=== PATIENT | male | born 1935 | race Caucasian/White ===

== ENCOUNTER 2018-05-21 13:07 | Inpatient (IN) | payer OTHER, MEDICAID ==
[~2018-05-21] VITALS: Ht 173 cm; Wt 113.9 kg
[~2018-05-21 13:07] MED LIST: ALBU18HF2 IH; DIGO250T4 PO; FLUT1DIS3 IH; FOLI-43 PO; LEVO125T8 PO; METF-414 PO; OMEP20CA10 PO; WARF1TAB85 PO
[2018-05-21] MEDS ORDERED: IPRATROPIUM BROMIDE (0.02%) 0.5MG/2.5ML NEB HHN STA (13:59)
[2018-05-21] MEDS ORDERED: METHYLPREDNISOLONE SOD SUCC 125 MG/2 ML VIAL IV STA (13:59)
[2018-05-21] MEDS ORDERED: ALBUTEROL (0.083%) 2.5MG/3ML NEB HHN STA (13:59)
[2018-05-21 14:26] LABS: BASOPHILS % 0.6 % (0.0-2.0); HEMATOCRIT. 42.9 % (42.0-52.0); HEMOGLOBIN. 14.1 g/dL (14.0-18.0); LYMPHOCYTES % 19.1 % (20.0-50.0); MEAN CORPUSCULAR HEMOGLOBIN 28.5 pg (28.0-32.0); MEAN CORPUSCULAR VOLUME 87.1 fL (80.0-94.0); MEAN PLATELET VOLUME 7.3 fl (7.4-10.4); NEUTROPHILS % 67.3 % (40.0-76.0); PLATELET 200 x1000/uL (130-400); RED BLOOD CELL COUNT 4.93 mill/uL (4.7-6.1); RED CELL DISTRIBUTION WIDTH 15.3 % (11.6-14.6)
[2018-05-21 14:34] LABS: CHLORIDE 91 mEq/L (98-107)
[2018-05-21 14:41] LABS: INR 1.1; PARTIAL THROMBOPLASTIN TIME 31.7 sec (23.4-31.0); PROTHROMBIN TIME 11.5 sec (9.1-11.1)
[2018-05-21 14:58] LABS: DIGOXIN 0.5 ng/mL (0.9-2.0)
[2018-05-21] MEDS ORDERED: CLOPIDOGREL 75MG TABLET PO ONE (17:30)
[2018-05-21] MEDS ORDERED: ENOXAPARIN 150MG/ML SYR SUBCUT ONE (17:30)
[2018-05-21 20:12] LABS: T4 FREE 1.25 ng/dL (0.76-1.46)
[2018-05-21] MEDS ORDERED: IOHEXOL-350 100 ML BOTTLE ONE (22:12)
[2018-05-22] VITALS (7 sets, daily range): BP systolic 101–124; BP diastolic 62–78
[2018-05-22] MEDS ORDERED: GUAIFENESIN 200MG/10ML SUGAR FREE UDC PO PRN (00:45)
[2018-05-22] MEDS ORDERED: IPRATROPIUM/ALBUTEROL 0.5-3(2.5)MG/3ML NEB INH PRN (00:45)
[2018-05-22] MEDS ORDERED: DIPHENHYDRAMINE 50MG/ML VIAL IV PRN (00:45)
[2018-05-22] MEDS ORDERED: CLONIDINE 0.1MG TABLET PO PRN (00:45)
[2018-05-22] MEDS ORDERED: ONDANSETRON HCL 4MG/2ML INJ IV PRN (00:45)
[2018-05-22] MEDS ORDERED: ACETAMINOPHEN 325MG TABLET PO PRN (00:45)
[2018-05-22] MEDS ORDERED: DEXTROSE 50% WATER 50ML SYRINGE IV PRN (00:45)
[2018-05-22] MEDS ORDERED: MAGNESIUM/ALUMINUM HYDROXIDE/SIMETHICONE 30ML UDC PO PRN (00:45)
[2018-05-22] MEDS: METHYLPREDNISOLONE SOD SUCC 40 MG/ML VIAL IV SCH ×3 (05:53→21:00)
[2018-05-22] MEDS: BLOOD SUGAR DIAGNOSTIC STRIP TEST SCH ×4 (05:54→20:34)
[2018-05-22] MEDS: SODIUM CHLORIDE 0.9% INJ 3ML FLUSH IVF SCH ×3 (05:54→21:07)
[2018-05-22] MEDS: ENOXAPARIN 150MG/ML SYR SUBCUT SCH ×2 (05:54→17:55)
[2018-05-22] MEDS: OMEPRAZOLE 20MG CAPSULE EXTENDED RELEASE PO SCH ×2 (05:57→21:00)
[2018-05-22] MEDS: INSULIN LISPRO 100 UNITS/ML SUBCUT SCH ×4 (07:50→21:01)
[2018-05-22] MEDS: INSULIN GLARGINE UD 100 UNITS/ML SYR SUBCUT SCH (09:06)
[2018-05-22] MEDS: IPRATROPIUM/ALBUTEROL 0.5-3(2.5)MG/3ML NEB HHN SCH ×4 (09:50→21:40)
[2018-05-22] MEDS ORDERED: INSULIN GLARGINE UD 100 UNITS/ML SYR SUBCUT SCH (10:00)
[2018-05-22 13:36] LABS: BG BASE EXCESS 7.9 mmol/L (-2.0-2.0); BG CARBOXYHEMOGLOBIN 0.9 % (0.5-1.5); BG FRACTION INSPIRED OXYGEN 30; BG HCO3 ACT 34.6 mmol/L (22.0-26.0); BG METHEMOGLOBIN 0.2 % (0.0-1.5); BG OXYHEMOGLOBIN 95.9 % (94.0-97.0); BG PCO2 56.6 mmHg (35.0-45.0); BG PH 7.404 (7.350-7.450); BG PO2 92.3 mmHg (75.0-100.0); BG SAMPLE SITE RIGHT RADIAL; BG TOTAL HEMOGLOBIN 14.3 g/dL (12.0-18.0); BG VENT MODE NASAL CANNULA
[2018-05-22 15:33] LABS: INR 1.2; PROTHROMBIN TIME 11.6 sec (9.1-11.1)
[2018-05-22 15:37] LABS: CHLORIDE 92 mEq/L (98-107)
[2018-05-22 15:45] LABS: LDL CHOLESTEROL 94 mg/dL (5-100)
[2018-05-22 15:46] LABS: HDL CHOLESTEROL 28 mg/dL (40-59)
[2018-05-22] MEDS: DIGOXIN 250MCG TABLET PO SCH (17:55)
[2018-05-22] MEDS: BUDESONIDE 0.5MG/2ML NEB HHN SCH (21:40)
[2018-05-23 00:35] VITALS: BP 121/68
[2018-05-23] MEDS: IPRATROPIUM/ALBUTEROL 0.5-3(2.5)MG/3ML NEB HHN SCH ×6 (00:53→19:47)
[2018-05-23 04:00] VITALS: BP 123/69
[2018-05-23] MEDS: METHYLPREDNISOLONE SOD SUCC 40 MG/ML VIAL IV SCH ×3 (06:31→21:27)
[2018-05-23] MEDS: SODIUM CHLORIDE 0.9% INJ 3ML FLUSH IVF SCH ×3 (06:31→21:27)
[2018-05-23] MEDS: OMEPRAZOLE 20MG CAPSULE EXTENDED RELEASE PO SCH ×2 (06:31→21:27)
[2018-05-23] MEDS: BLOOD SUGAR DIAGNOSTIC STRIP TEST SCH ×4 (06:31→21:27)
[2018-05-23] MEDS: ENOXAPARIN 150MG/ML SYR SUBCUT SCH ×2 (06:31→18:13)
[2018-05-23] MEDS: INSULIN LISPRO 100 UNITS/ML SUBCUT SCH ×4 (07:50→21:28)
[2018-05-23 08:00] VITALS: BP 110/50
[2018-05-23] MEDS: BUDESONIDE 0.5MG/2ML NEB HHN SCH ×2 (08:17→19:47)
[2018-05-23 08:53] LABS: HEMATOCRIT 40.4 % (42.0-52.0); HEMOGLOBIN 13.2 g/dL (14.0-18.0); MEAN CORPUSCULAR HEMOGLOBIN 28.1 pg (28.0-32.0); MEAN CORPUSCULAR VOLUME 86.3 fL (80.0-94.0); PLATELET 213 x1000/uL (130-400); RED BLOOD CELL COUNT 4.68 mill/uL (4.7-6.1); RED CELL DISTRIBUTION WIDTH 15.4 % (11.6-14.6)
[2018-05-23] MEDS: INSULIN GLARGINE UD 100 UNITS/ML SYR SUBCUT SCH (09:29)
[2018-05-23 12:00] VITALS: BP 110/66
[2018-05-23 16:00] VITALS: BP 109/69
[2018-05-23] MEDS: DIGOXIN 250MCG TABLET PO SCH (18:14)
[2018-05-23 20:42] VITALS: BP 110/58
[2018-05-24] VITALS: BP 114/60
[2018-05-24] MEDS: IPRATROPIUM/ALBUTEROL 0.5-3(2.5)MG/3ML NEB HHN SCH ×6 (01:32→22:18)
[2018-05-24 04:00] VITALS: BP 136/77
[2018-05-24] MEDS: OMEPRAZOLE 20MG CAPSULE EXTENDED RELEASE PO SCH ×2 (06:35→22:08)
[2018-05-24] MEDS: METHYLPREDNISOLONE SOD SUCC 40 MG/ML VIAL IV SCH ×3 (06:35→22:08)
[2018-05-24] MEDS: SODIUM CHLORIDE 0.9% INJ 3ML FLUSH IVF SCH ×3 (06:35→22:09)
[2018-05-24] MEDS: ENOXAPARIN 150MG/ML SYR SUBCUT SCH ×2 (06:35→18:21)
[2018-05-24] MEDS: BLOOD SUGAR DIAGNOSTIC STRIP TEST SCH ×4 (06:35→20:38)
[2018-05-24 08:00] VITALS: BP 140/77
[2018-05-24] MEDS: BUDESONIDE 0.5MG/2ML NEB HHN SCH ×2 (09:01→22:18)
[2018-05-24] MEDS: INSULIN LISPRO 100 UNITS/ML SUBCUT SCH ×4 (10:15→22:08)
[2018-05-24] MEDS: INSULIN GLARGINE UD 100 UNITS/ML SYR SUBCUT SCH (10:16)
[2018-05-24 12:42] VITALS: BP 107/77
[2018-05-24 16:56] VITALS: BP 125/73
[2018-05-24] MEDS: DIGOXIN 250MCG TABLET PO SCH (18:21)
[2018-05-24 20:00] VITALS: BP 119/67
[2018-05-25] VITALS: BP 123/69
[2018-05-25] MEDS: IPRATROPIUM/ALBUTEROL 0.5-3(2.5)MG/3ML NEB HHN SCH ×6 (01:40→20:31)
[2018-05-25 04:00] VITALS: BP 129/76
[2018-05-25] MEDS: SODIUM CHLORIDE 0.9% INJ 3ML FLUSH IVF SCH ×3 (05:57→22:00)
[2018-05-25] MEDS: ENOXAPARIN 150MG/ML SYR SUBCUT SCH ×2 (05:57→17:52)
[2018-05-25] MEDS: METHYLPREDNISOLONE SOD SUCC 40 MG/ML VIAL IV SCH ×3 (05:57→21:49)
[2018-05-25] MEDS: OMEPRAZOLE 20MG CAPSULE EXTENDED RELEASE PO SCH ×2 (06:05→21:54)
[2018-05-25 06:55] LABS: HEMATOCRIT 43.7 % (42.0-52.0); HEMOGLOBIN 14.3 g/dL (14.0-18.0); MEAN CORPUSCULAR HEMOGLOBIN 28.1 pg (28.0-32.0); MEAN CORPUSCULAR VOLUME 86.1 fL (80.0-94.0); PLATELET 246 x1000/uL (130-400); RED BLOOD CELL COUNT 5.08 mill/uL (4.7-6.1); RED CELL DISTRIBUTION WIDTH 15.7 % (11.6-14.6)
[2018-05-25] MEDS: BLOOD SUGAR DIAGNOSTIC STRIP TEST SCH ×4 (07:20→21:00)
[2018-05-25] MEDS: INSULIN LISPRO 100 UNITS/ML SUBCUT SCH ×4 (07:38→21:00)
[2018-05-25 07:55] LABS: CHLORIDE 98 mEq/L (98-107)
[2018-05-25 08:00] VITALS: BP 107/62
[2018-05-25] MEDS: BUDESONIDE 0.5MG/2ML NEB HHN SCH (08:09)
[2018-05-25] MEDS: INSULIN GLARGINE UD 100 UNITS/ML SYR SUBCUT SCH (09:28)
[2018-05-25 12:00] VITALS: BP 107/63
[2018-05-25 16:00] VITALS: BP 130/76
[2018-05-25] MEDS: DIGOXIN 250MCG TABLET PO SCH (17:52)
[2018-05-25 20:00] VITALS: BP 132/78
[2018-05-26] VITALS: BP 135/94
[2018-05-26] MEDS: IPRATROPIUM/ALBUTEROL 0.5-3(2.5)MG/3ML NEB HHN SCH ×5 (00:17→21:48)
[2018-05-26 02:00] VITALS: BP 135/88
[2018-05-26 04:00] VITALS: BP 127/87
[2018-05-26] MEDS: METHYLPREDNISOLONE SOD SUCC 40 MG/ML VIAL IV SCH ×2 (06:57→14:41)
[2018-05-26] MEDS: SODIUM CHLORIDE 0.9% INJ 3ML FLUSH IVF SCH ×2 (06:59→14:41)
[2018-05-26] MEDS: ENOXAPARIN 150MG/ML SYR SUBCUT SCH (07:04)
[2018-05-26] MEDS: BLOOD SUGAR DIAGNOSTIC STRIP TEST SCH ×4 (07:04→21:00)
[2018-05-26] MEDS: OMEPRAZOLE 20MG CAPSULE EXTENDED RELEASE PO SCH (07:08)
[2018-05-26 07:28] LABS: CHLORIDE 97 mEq/L (98-107)
[2018-05-26 07:37] LABS: HEMOGLOBIN 13.7 g/dL (14.0-18.0); MEAN CORPUSCULAR HEMOGLOBIN 28.2 pg (28.0-32.0); MEAN CORPUSCULAR VOLUME 86.2 fL (80.0-94.0); PLATELET 250 x1000/uL (130-400); RED BLOOD CELL COUNT 4.87 mill/uL (4.7-6.1); RED CELL DISTRIBUTION WIDTH 15.5 % (11.6-14.6)
[2018-05-26] MEDS: INSULIN LISPRO 100 UNITS/ML SUBCUT SCH ×4 (07:50→21:12)
[2018-05-26 08:00] VITALS: BP 133/74
[2018-05-26] MEDS: INSULIN GLARGINE UD 100 UNITS/ML SYR SUBCUT SCH (10:15)
[2018-05-26 12:00] VITALS: BP 121/72
[2018-05-26] MEDS ORDERED: ENOXAPARIN 120MG/0.8ML SYR SUBCUT SCH (15:54)
[2018-05-26 16:00] VITALS: BP 148/67
[2018-05-26] MEDS: ENOXAPARIN 120MG/0.8ML SYR SUBCUT SCH (17:19)
[2018-05-26] MEDS: DIGOXIN 250MCG TABLET PO SCH (17:19)
[2018-05-26] MEDS: FAMOTIDINE 20MG TABLET PO SCH (21:10)
[2018-05-27] VITALS: BP 153/62
[2018-05-27] MEDS: IPRATROPIUM/ALBUTEROL 0.5-3(2.5)MG/3ML NEB HHN SCH ×6 (01:30→21:51)
[2018-05-27 04:00] VITALS: BP 131/75
[2018-05-27] MEDS: METHYLPREDNISOLONE SOD SUCC 40 MG/ML VIAL IV SCH ×2 (06:54→17:58)
[2018-05-27] MEDS: SODIUM CHLORIDE 0.9% INJ 3ML FLUSH IVF SCH ×4 (06:54→20:29)
[2018-05-27] MEDS: ENOXAPARIN 120MG/0.8ML SYR SUBCUT SCH ×2 (07:02→19:31)
[2018-05-27] MEDS: BLOOD SUGAR DIAGNOSTIC STRIP TEST SCH ×4 (07:02→21:00)
[2018-05-27] MEDS: INSULIN LISPRO 100 UNITS/ML SUBCUT SCH ×4 (07:50→21:00)
[2018-05-27 08:00] VITALS: BP 174/75
[2018-05-27] MEDS: FAMOTIDINE 20MG TABLET PO SCH ×2 (09:49→20:29)
[2018-05-27] MEDS: INSULIN GLARGINE UD 100 UNITS/ML SYR SUBCUT SCH (11:46)
[2018-05-27 12:00] VITALS: BP 110/77
[2018-05-27] MEDS ORDERED: HYDROCODONE/ACETAMINOPHEN 5/325MG TABLET PO PRN (14:15)
[2018-05-27 16:00] VITALS: BP 131/59
[2018-05-27] MEDS: DIGOXIN 250MCG TABLET PO SCH (17:58)
[2018-05-27 20:00] VITALS: BP 128/73
[2018-05-28] VITALS: BP 130/62
[2018-05-28] MEDS: IPRATROPIUM/ALBUTEROL 0.5-3(2.5)MG/3ML NEB HHN SCH ×6 (00:22→20:23)
[2018-05-28 04:00] VITALS: BP 115/79
[2018-05-28] MEDS: ENOXAPARIN 120MG/0.8ML SYR SUBCUT SCH ×2 (06:35→09:11)
[2018-05-28] MEDS: METHYLPREDNISOLONE SOD SUCC 40 MG/ML VIAL IV SCH ×2 (06:35→17:59)
[2018-05-28] MEDS: BLOOD SUGAR DIAGNOSTIC STRIP TEST SCH ×4 (06:36→21:12)
[2018-05-28] MEDS: SODIUM CHLORIDE 0.9% INJ 3ML FLUSH IVF SCH ×3 (06:36→21:13)
[2018-05-28] MEDS: INSULIN LISPRO 100 UNITS/ML SUBCUT SCH ×4 (07:50→21:15)
[2018-05-28 08:00] VITALS: BP 116/67
[2018-05-28] MEDS: FAMOTIDINE 20MG TABLET PO SCH ×2 (09:10→21:13)
[2018-05-28] MEDS: INSULIN GLARGINE UD 100 UNITS/ML SYR SUBCUT SCH (10:58)
[2018-05-28 12:00] VITALS: BP 123/74
[2018-05-28 16:00] VITALS: BP 116/67
[2018-05-28] MEDS: DIGOXIN 250MCG TABLET PO SCH (17:59)
[2018-05-28 20:00] VITALS: BP 136/72
[2018-05-29] VITALS (7 sets, daily range): BP systolic 102–151; BP diastolic 67–97
[2018-05-29] MEDS: IPRATROPIUM/ALBUTEROL 0.5-3(2.5)MG/3ML NEB HHN SCH ×6 (00:47→20:15)
[2018-05-29] MEDS: INSULIN LISPRO 100 UNITS/ML SUBCUT SCH ×4 (06:14→21:00)
[2018-05-29] MEDS: ENOXAPARIN 120MG/0.8ML SYR SUBCUT SCH ×2 (06:14→17:39)
[2018-05-29] MEDS: METHYLPREDNISOLONE SOD SUCC 40 MG/ML VIAL IV SCH ×2 (06:14→17:39)
[2018-05-29] MEDS: BLOOD SUGAR DIAGNOSTIC STRIP TEST SCH ×4 (06:14→21:00)
[2018-05-29] MEDS: SODIUM CHLORIDE 0.9% INJ 3ML FLUSH IVF SCH ×3 (06:15→22:20)
[2018-05-29] MEDS: FAMOTIDINE 20MG TABLET PO SCH ×2 (09:33→22:16)
[2018-05-29] MEDS: INSULIN GLARGINE UD 100 UNITS/ML SYR SUBCUT SCH (09:56)
[2018-05-29] MEDS: DIGOXIN 250MCG TABLET PO SCH (17:39)
[2018-05-30] VITALS: BP 143/77
[2018-05-30] MEDS: IPRATROPIUM/ALBUTEROL 0.5-3(2.5)MG/3ML NEB HHN SCH ×6 (00:05→20:49)
[2018-05-30 04:00] VITALS: BP 124/75
[2018-05-30] MEDS: METHYLPREDNISOLONE SOD SUCC 40 MG/ML VIAL IV SCH ×2 (05:22→17:59)
[2018-05-30] MEDS: ENOXAPARIN 120MG/0.8ML SYR SUBCUT SCH ×2 (05:23→09:38)
[2018-05-30] MEDS: SODIUM CHLORIDE 0.9% INJ 3ML FLUSH IVF SCH ×3 (05:38→22:30)
[2018-05-30 07:08] LABS: HEMATOCRIT 46.2 % (42.0-52.0); HEMOGLOBIN 15.1 g/dL (14.0-18.0); MEAN CORPUSCULAR HEMOGLOBIN 28.3 pg (28.0-32.0); MEAN CORPUSCULAR VOLUME 86.3 fL (80.0-94.0); PLATELET 230 x1000/uL (130-400); RED BLOOD CELL COUNT 5.35 mill/uL (4.7-6.1); RED CELL DISTRIBUTION WIDTH 15.4 % (11.6-14.6)
[2018-05-30] MEDS: BLOOD SUGAR DIAGNOSTIC STRIP TEST SCH ×4 (07:20→20:42)
[2018-05-30] MEDS: INSULIN LISPRO 100 UNITS/ML SUBCUT SCH ×4 (07:50→20:42)
[2018-05-30 08:00] VITALS: BP 143/87
[2018-05-30 08:51] LABS: CHLORIDE 95 mEq/L (98-107)
[2018-05-30] MEDS: FAMOTIDINE 20MG TABLET PO SCH ×2 (09:38→20:47)
[2018-05-30] MEDS: INSULIN GLARGINE UD 100 UNITS/ML SYR SUBCUT SCH (10:08)
[2018-05-30 12:00] VITALS: BP 116/79
[2018-05-30 16:00] VITALS: BP 121/77
[2018-05-30] MEDS: DIGOXIN 250MCG TABLET PO SCH (17:59)
[2018-05-30 20:00] VITALS: BP 135/70
[2018-05-31] VITALS: BP 130/75
[2018-05-31] MEDS: IPRATROPIUM/ALBUTEROL 0.5-3(2.5)MG/3ML NEB HHN SCH ×7 (00:21→23:52)
[2018-05-31 04:00] VITALS: BP 120/70
[2018-05-31] MEDS: ENOXAPARIN 120MG/0.8ML SYR SUBCUT SCH ×2 (05:17→18:38)
[2018-05-31] MEDS: METHYLPREDNISOLONE SOD SUCC 40 MG/ML VIAL IV SCH (05:17)
[2018-05-31] MEDS: SODIUM CHLORIDE 0.9% INJ 3ML FLUSH IVF SCH ×3 (05:17→21:22)
[2018-05-31] MEDS: BLOOD SUGAR DIAGNOSTIC STRIP TEST SCH ×4 (06:28→21:15)
[2018-05-31] MEDS: INSULIN LISPRO 100 UNITS/ML SUBCUT SCH ×4 (06:29→21:00)
[2018-05-31 07:41] LABS: HEMATOCRIT 46.6 % (42.0-52.0); HEMOGLOBIN 15.4 g/dL (14.0-18.0); MEAN CORPUSCULAR HEMOGLOBIN 28.5 pg (28.0-32.0); MEAN CORPUSCULAR VOLUME 86.5 fL (80.0-94.0); PLATELET 194 x1000/uL (130-400); RED BLOOD CELL COUNT 5.39 mill/uL (4.7-6.1); RED CELL DISTRIBUTION WIDTH 15.4 % (11.6-14.6)
[2018-05-31 08:00] VITALS: BP 126/65
[2018-05-31 08:09] LABS: CHLORIDE 95 mEq/L (98-107)
[2018-05-31] MEDS: FAMOTIDINE 20MG TABLET PO SCH ×2 (09:10→21:16)
[2018-05-31] MEDS: INSULIN GLARGINE UD 100 UNITS/ML SYR SUBCUT SCH (09:16)
[2018-05-31 12:00] VITALS: BP 126/62
[2018-05-31 16:00] VITALS: BP 117/71
[2018-05-31] MEDS: DIGOXIN 250MCG TABLET PO SCH (18:38)
[2018-05-31 20:06] VITALS: BP 124/77
[2018-06-01] VITALS: BP 115/72
[2018-06-01 04:00] VITALS: BP 121/90
[2018-06-01] MEDS: IPRATROPIUM/ALBUTEROL 0.5-3(2.5)MG/3ML NEB HHN SCH ×5 (04:33→21:09)
[2018-06-01] MEDS: ENOXAPARIN 120MG/0.8ML SYR SUBCUT SCH ×2 (05:46→18:28)
[2018-06-01] MEDS: SODIUM CHLORIDE 0.9% INJ 3ML FLUSH IVF SCH ×3 (05:47→21:01)
[2018-06-01] MEDS: BLOOD SUGAR DIAGNOSTIC STRIP TEST SCH ×4 (07:31→21:02)
[2018-06-01] MEDS: INSULIN LISPRO 100 UNITS/ML SUBCUT SCH ×4 (07:50→21:00)
[2018-06-01 08:00] VITALS: BP 136/84
[2018-06-01] MEDS: FAMOTIDINE 20MG TABLET PO SCH ×2 (09:02→21:00)
[2018-06-01] MEDS: METHYLPREDNISOLONE SOD SUCC 40 MG/ML VIAL IV SCH (09:02)
[2018-06-01 12:00] VITALS: BP 141/79
[2018-06-01] MEDS: INSULIN GLARGINE UD 100 UNITS/ML SYR SUBCUT SCH (12:41)
[2018-06-01 16:00] VITALS: BP 136/88
[2018-06-01] MEDS: DIGOXIN 250MCG TABLET PO SCH (18:28)
[2018-06-01 20:00] VITALS: BP 133/90
[2018-06-02] VITALS: BP 131/87
[2018-06-02] MEDS: IPRATROPIUM/ALBUTEROL 0.5-3(2.5)MG/3ML NEB HHN SCH ×6 (01:15→20:43)
[2018-06-02 04:00] VITALS: BP 111/73
[2018-06-02] MEDS: ENOXAPARIN 120MG/0.8ML SYR SUBCUT SCH ×2 (05:56→17:52)
[2018-06-02] MEDS: SODIUM CHLORIDE 0.9% INJ 3ML FLUSH IVF SCH ×3 (06:00→22:00)
[2018-06-02] MEDS: BLOOD SUGAR DIAGNOSTIC STRIP TEST SCH ×4 (07:20→20:28)
[2018-06-02] MEDS: INSULIN LISPRO 100 UNITS/ML SUBCUT SCH ×4 (07:50→20:33)
[2018-06-02 08:00] VITALS: BP 111/73
[2018-06-02] MEDS: FAMOTIDINE 20MG TABLET PO SCH ×3 (09:03→21:03)
[2018-06-02] MEDS: METHYLPREDNISOLONE SOD SUCC 40 MG/ML VIAL IV SCH (09:03)
[2018-06-02] MEDS: INSULIN GLARGINE UD 100 UNITS/ML SYR SUBCUT SCH (09:09)
[2018-06-02 12:00] VITALS: BP 110/70
[2018-06-02 16:00] VITALS: BP 114/74
[2018-06-02] MEDS: DIGOXIN 250MCG TABLET PO SCH (17:52)
[2018-06-02 20:00] VITALS: BP 108/64
[2018-06-03] VITALS: BP 138/85
[2018-06-03] MEDS: IPRATROPIUM/ALBUTEROL 0.5-3(2.5)MG/3ML NEB HHN SCH ×6 (01:01→20:00)
[2018-06-03 03:54] VITALS: BP 133/81
[2018-06-03] MEDS: SODIUM CHLORIDE 0.9% INJ 3ML FLUSH IVF SCH ×3 (05:58→23:32)
[2018-06-03] MEDS: BLOOD SUGAR DIAGNOSTIC STRIP TEST SCH ×4 (05:58→21:33)
[2018-06-03] MEDS: ENOXAPARIN 120MG/0.8ML SYR SUBCUT SCH ×2 (06:35→18:11)
[2018-06-03] MEDS: INSULIN LISPRO 100 UNITS/ML SUBCUT SCH ×4 (07:50→21:35)
[2018-06-03 08:00] VITALS: BP 128/80
[2018-06-03] MEDS: FAMOTIDINE 20MG TABLET PO SCH ×2 (08:50→20:59)
[2018-06-03] MEDS: METHYLPREDNISOLONE SOD SUCC 40 MG/ML VIAL IV SCH (08:50)
[2018-06-03] MEDS: INSULIN GLARGINE UD 100 UNITS/ML SYR SUBCUT SCH (10:54)
[2018-06-03 11:55] VITALS: BP 129/80
[2018-06-03 16:00] VITALS: BP 104/56
[2018-06-03] MEDS: DIGOXIN 250MCG TABLET PO SCH (17:57)
[2018-06-03 20:24] VITALS: BP 107/78
[2018-06-04] VITALS: BP 102/64
[2018-06-04] MEDS: IPRATROPIUM/ALBUTEROL 0.5-3(2.5)MG/3ML NEB HHN SCH ×6 (00:57→21:26)
[2018-06-04 04:00] VITALS: BP 106/61
[2018-06-04] MEDS: SODIUM CHLORIDE 0.9% INJ 3ML FLUSH IVF SCH ×3 (07:00→21:43)
[2018-06-04] MEDS: ENOXAPARIN 120MG/0.8ML SYR SUBCUT SCH ×2 (07:01→17:58)
[2018-06-04] MEDS: BLOOD SUGAR DIAGNOSTIC STRIP TEST SCH ×4 (07:20→21:00)
[2018-06-04 07:45] LABS: HEMATOCRIT 46.6 % (42.0-52.0); HEMOGLOBIN 15.3 g/dL (14.0-18.0); MEAN CORPUSCULAR HEMOGLOBIN 28.3 pg (28.0-32.0); MEAN CORPUSCULAR VOLUME 86.5 fL (80.0-94.0); PLATELET 181 x1000/uL (130-400); RED BLOOD CELL COUNT 5.39 mill/uL (4.7-6.1); RED CELL DISTRIBUTION WIDTH 15.2 % (11.6-14.6)
[2018-06-04] MEDS: INSULIN LISPRO 100 UNITS/ML SUBCUT SCH ×4 (07:50→21:00)
[2018-06-04 08:00] VITALS: BP 97/67
[2018-06-04 08:35] LABS: CHLORIDE 93 mEq/L (98-107)
[2018-06-04] MEDS: METHYLPREDNISOLONE SOD SUCC 40 MG/ML VIAL IV SCH (09:00)
[2018-06-04 09:03] LABS: DIGOXIN 0.7 ng/mL (0.9-2.0)
[2018-06-04] MEDS: INSULIN GLARGINE UD 100 UNITS/ML SYR SUBCUT SCH (10:00)
[2018-06-04] MEDS: FAMOTIDINE 20MG TABLET PO SCH ×2 (10:23→21:42)
[2018-06-04 11:25] VITALS: BP 102/60
[2018-06-04 16:00] VITALS: BP 97/77
[2018-06-04] MEDS: DIGOXIN 250MCG TABLET PO SCH (17:58)
[2018-06-04 20:00] VITALS: BP 106/62
[2018-06-05] VITALS: BP 117/71
[2018-06-05] MEDS: IPRATROPIUM/ALBUTEROL 0.5-3(2.5)MG/3ML NEB HHN SCH ×6 (01:21→20:59)
[2018-06-05 04:00] VITALS: BP 109/70
[2018-06-05] MEDS: SODIUM CHLORIDE 0.9% INJ 3ML FLUSH IVF SCH ×3 (06:00→21:31)
[2018-06-05] MEDS: ENOXAPARIN 120MG/0.8ML SYR SUBCUT SCH ×2 (06:40→18:05)
[2018-06-05] MEDS: BLOOD SUGAR DIAGNOSTIC STRIP TEST SCH ×4 (06:40→21:32)
[2018-06-05] MEDS: INSULIN LISPRO 100 UNITS/ML SUBCUT SCH ×4 (07:50→21:31)
[2018-06-05 08:00] VITALS: BP 127/81
[2018-06-05] MEDS: FAMOTIDINE 20MG TABLET PO SCH ×2 (09:19→21:27)
[2018-06-05] MEDS: METHYLPREDNISOLONE SOD SUCC 40 MG/ML VIAL IV SCH (09:19)
[2018-06-05] MEDS: INSULIN GLARGINE UD 100 UNITS/ML SYR SUBCUT SCH (09:25)
[2018-06-05 12:00] VITALS: BP 135/79
[2018-06-05 16:00] VITALS: BP 132/82
[2018-06-05] MEDS: DIGOXIN 250MCG TABLET PO SCH (17:38)
[2018-06-05 20:00] VITALS: BP 103/59
[2018-06-06] VITALS (8 sets, daily range): BP systolic 116–136; BP diastolic 51–83
[2018-06-06] MEDS: IPRATROPIUM/ALBUTEROL 0.5-3(2.5)MG/3ML NEB HHN SCH ×6 (00:40→20:49)
[2018-06-06] MEDS: SODIUM CHLORIDE 0.9% INJ 3ML FLUSH IVF SCH ×3 (06:04→21:03)
[2018-06-06] MEDS: ENOXAPARIN 120MG/0.8ML SYR SUBCUT SCH ×2 (06:05→17:57)
[2018-06-06] MEDS: BLOOD SUGAR DIAGNOSTIC STRIP TEST SCH ×4 (06:30→21:03)
[2018-06-06] MEDS: INSULIN LISPRO 100 UNITS/ML SUBCUT SCH ×4 (07:50→21:00)
[2018-06-06] MEDS: METHYLPREDNISOLONE SOD SUCC 40 MG/ML VIAL IV SCH (09:11)
[2018-06-06] MEDS: FAMOTIDINE 20MG TABLET PO SCH ×2 (09:11→21:03)
[2018-06-06] MEDS: INSULIN GLARGINE UD 100 UNITS/ML SYR SUBCUT SCH (10:44)
[2018-06-06] MEDS: DIGOXIN 250MCG TABLET PO SCH (17:55)
[2018-06-07] MEDS ORDERED: PREDNISONE 20MG TABLET PO SCH (09:00)
== END 2018-06-07 00:20 | disposition short-term general hospital (02) | DRG 189 ==
LOC: ER 13:34 → CANBEDREQ 18:45 → ENRESERV 23:21 → 6WST 05-22 00:33
PROVIDERS: ADMIT Internal Medicine; ATTEND Internal Medicine
DX: J96.22 Acute and chronic respiratory failure with hypercapnia (principal); I50.43 Acute on chronic combined systolic (congestive) and diastolic (congestive) heart failure; J44.1 Chronic obstructive pulmonary disease with (acute) exacerbation; E87.1 Hypo-osmolality and hyponatremia; I82.413 Acute embolism and thrombosis of femoral vein, bilateral; I82.433 Acute embolism and thrombosis of popliteal vein, bilateral; E66.2 Morbid (severe) obesity with alveolar hypoventilation; E07.9 Disorder of thyroid, unspecified; E11.65 Type 2 diabetes mellitus with hyperglycemia; I11.0 Hypertensive heart disease with heart failure; I48.2 Chronic atrial fibrillation; R59.0 Localized enlarged lymph nodes; E01.0 Iodine-deficiency related diffuse (endemic) goiter; E87.8 Other disorders of electrolyte and fluid balance, not elsewhere classified; D72.829 Elevated white blood cell count, unspecified; I07.1 Rheumatic tricuspid insufficiency; K21.9 Gastro-esophageal reflux disease without esophagitis; T38.0X5A Adverse effect of glucocorticoids and synthetic analogues, initial encounter; Z88.6 Allergy status to analgesic agent; Z87.440 Personal history of urinary (tract) infections; Z79.01 Long term (current) use of anticoagulants; Z79.84 Long term (current) use of oral hypoglycemic drugs; Z86.73 Personal history of transient ischemic attack (TIA), and cerebral infarction without residual deficits; Z79.899 Other long term (current) drug therapy; I25.2 Old myocardial infarction; Z68.38 Body mass index [BMI] 38.0-38.9, adult
CPT/HCPCS: 36415; 36600; 70490; 71045; 71275; 80048; 80061; 80162; 82375; 82805; 82962; 83036; 83880; 84439; 84443; 84484; 85027; 93005; 93306; 93923; 93970; 94640; 96374; 99285; J1650; J1815; J2920; J2930; J7611; J7620; J7626; Q9967